=== PATIENT | female | born 1945 | race Caucasian/White ===

== ENCOUNTER 2016-10-15 15:58 | Emergency (ER) | payer OTHER ==
[2016-10-15] MEDS ORDERED: ONDANSETRON 4 MG/2 ML VIAL IVPB ONE (16:22)
[2016-10-15] MEDS ORDERED: SODIUM CHLORIDE 250 ML IV STA (16:22)
--- NOTE | 2016-10-15 16:24 | PDOC ---
History of Present Illness - General History Source: Patient Exam Limitations: No Limitations - History of Present Illness Initial Comments: 10/15/16 16:45 The patient is a 45 year old female, with significant past medical history if vasovagal syncope, osteopenia, who presents today complaining of 3 days of nausea, sweats, shakes, fatigue, and multiple episodes of watery diarrhea. She did not check if she had a fever. She denies abdominal pain. She is able to keep down toast and 6 or 7 mugs of chamomile tea during the day. She went to visit Dr. Linder this afternoon because she was not improving. The nurses could not get a line in for IV fluids and the office was closing, so she was sent down to the ED. Denies chest pain, SOB. Denies lightheadedness, dizziness. Denies urinary changes. Denies abdominal pain. Allergies: Penicillins, tetracyclines, sulfa Medications: Calcium, magnesium, multivitamins Surgical Hx: none Social Hx: No tobacco use. PCP: Dr. Linder <Tash Barrios - Last Filed: 10/15/16 17:33> <Chi Hoffman - Last Filed: 10/15/16 18:24> - General Chief Complaint: Vomiting/Diarrhea Stated Complaint: DEHYDRATION Time Seen by Provider: 10/15/16 16:21 Past History <Tash Barrios - Last Filed: 10/15/16 17:33> - Psycho/Social/Smoking Cessation Hx Anxiety: No Suicidal Ideation: No Smoking History: Never smoked Hx Alcohol Use: No Substance Use Type: None <Chi Hoffman - Last Filed: 10/15/16 18:24> - Past Medical History Allergies/Adverse Reactions: Allergies Allergy/AdvReac Type Severity Reaction Status Date / Time Penicillins Allergy rash Verified 10/15/16 15:59 Sulfa (Sulfonamide Allergy itching Verified 10/15/16 15:59 Antibiotics) Tetracyclines Allergy Verified 10/15/16 15:59 Home Medications: Ambulatory Orders Calcium Carbonate/Vitamin D3 [Caltrate 600 Plus D3 Tablet] 1 each PO DAILY tablet 02/03/13 Magnesium 250 mg PO DAILY 10/15/16 Multivitamins [Multivit ([facility] Formul[facility])] 1 tab PO DAILY 10/15/16 Ondansetron [Zofran Odt -] 4 mg SL TID PRN #12 od.tablet 10/15/16 Review of Systems - Review of Systems Able to Perform ROS?: Yes Comments:: 10/15/16 16:45 CONSTITUTIONAL: Present: fatigue, sweats Absent: fever, no chills EYES: Absent: visual changes ENT: Absent: ear pain, no sore throat CARDIOVASCULAR: Absent: chest pain, no palpitations RESPIRATORY: Absent: cough, no SOB GI: Present: nausea, 1 episode of diarrhea Absent: abdominal pain, no vomiting, no constipation GENITOURINARY: Absent: dysuria, no frequency, no hematuria MUSCULOSKELETAL: Absent: back pain, no arthralgia, no myalgia SKIN: Absent: rash <Tash Barrios - Last Filed: 10/15/16 17:33> *Physical Exam - Physical Exam Comments: 10/15/16 17:33 GENERAL: Well-appearing, well-nourished. No apparent distress. Pale, but always pale according to her . HEENT: Normocephalic, atraumatic. PERRL, EOM intact. CARDIOVASCULAR: Normal S1, S2. Regular rate and rhythm. PULMONARY: Clear to auscultation bilaterally. ABDOMEN: Soft, non-distended, non-tender. Normal bowel sounds. Soft without masses or organomegaly. EXTREMITIES: Normal ROM in all four extremities. No gross deformities. SKIN: Warm, dry. No rash NEUROLOGICAL: No focal neurological deficits. <Tash Barrios - Last Filed: 10/15/16 17:33> ED Treatment Course - LABORATORY CBC & Chemistry Diagram: 10/15/16 16:57 10/15/16 16:57 <Tash Barrios - Last Filed: 10/15/16 17:33> - LABORATORY CBC & Chemistry Diagram: 10/15/16 16:57 10/15/16 16:57 <Chi Hoffman - Last Filed: 10/15/16 18:24> Medical Decision Making - Medical Decision Making 10/15/16 17:59 Patient with primary symptoms of generalized weakness since Friday, but also symptoms of what sounds like a viral gastroenteritis with subjective fever and chills, nausea, and profuse watery diarrhea but on one day only. Sent to the emergency room by her primary physician for presumed dehydration and intravenous rehydration. Physical exam this entirely normal. There is no abdominal tenderness and the nausea seems to have subsided. She has not had any bowel movement for over 24 hours, but is not uncomfortable. With nausea and fatigue, consider occult cardiac disease, although there are no significant risk factors EKG shows normal sinus rhythm and no ST-T wave changes. It appears to be a normal EKG Laboratory evaluation shows no significant abnormalities. The cardiac enzymes are normal The patient feels better after intravenous hydration, although her BUN/ creatinine were not elevated, her hemoglobin and hematocrit were high. 10/15/16 18:21 The patient feels much better. Color is improved. Discharged with her fully ambulatory and in no distress to follow-up as directed <Chi Hoffman - Last Filed: 10/15/16 18:24> *DC/Admit/Observation/Transfer - Attestations Scribe Attestion: 10/15/16 16:47 Documentation prepared by ANDREA Delaney, acting as auditor medical claims for Chi Hoffman MD. <Tahs Barrios - Last Filed: 10/15/16 17:33> - Discharge Dispostion Admit: No <Chi Hoffman - Last Filed: 10/15/16 18:24> Diagnosis at time of Disposition: Viral gastroenteritis - Discharge Dispostion Disposition: HOME Condition at time of disposition: Improved - Prescriptions Prescriptions: Ondansetron [Zofran Odt -] 4 mg SL TID PRN #12 od.tablet PRN Reason: Nausea And/Or Vomiting - Patient Instructions Printed Discharge Instructions: DI for Viral Gastroenteritis -- Adult, DI for Nausea -- Adult
[2016-10-15 17:00] VITALS: BP 140/80; PULSE 83; TEMP 98.3; BMI 20.9
[2016-10-15 17:40] LABS: ALBUMIN 4.6 g/dl (3.5-5.0); ALK PHOS 65 U/L (32-92); ANION GAP 13 (8-16); BILIRUBIN,TOTAL 0.7 mg/dl (0.2-1.0); CALCIUM 9.1 mg/dl (8.4-10.2); CO2 24 mmol/L (22-28); CREATININE 0.6 mg/dl (0.6-1.3); GLUCOSE,RANDOM 90 mg/dl (74-106); SGOT/AST 20 U/L (10-42); SGPT/ALT 16 U/L (10-40); TOT PROT 7.6 g/dl (6.4-8.3)
[2016-10-15 17:48] LABS: BASOPHIL 0.6 % (0-2.0); EOSINOPHIL 0.1 % (0-4.5); MCH 28.3 pg (25.7-33.7); MEAN PLT VOLUME 9.7 fl (7.5-11.1); NEUTROPHILS 62.6 % (42.8-82.8); PLATELET COUNT 317 K/MM3 (134-434); RDW 13.1 % (11.6-15.6); WHITE BLOOD COUNT 8.3 K/mm3 (4.0-10.8)
[2016-10-15] MEDS ORDERED: SODIUM CHLORIDE 500 ML IV STA (17:50)
[2016-10-15 17:53] LABS: CPK(DFH) 73 IU/L (26-140)
[2016-10-15 18:06] LABS: TROPONIN I (DFP) < 0.03 ng/ml (0.03-0.50)
--- NOTE | 2016-10-18 18:29 | EKG ---
Test Reason : Blood Pressure : / mmHG Vent. Rate : 070 BPM Atrial Rate : 070 BPM P-R Int : 124 ms QRS Dur : 076 ms QT Int : 410 ms P-R-T Axes : 048 037 058 degrees QTc Int : 442 ms POOR DATA QUALITY, INTERPRETATION MAY BE ADVERSELY AFFECTED NORMAL SINUS RHYTHM NO PREVIOUS ECGS AVAILABLE Confirmed by MD GONCALVES MARJORY ([id number]) on 10/18/2016 6:28:49 PM Referred By: DR BERNAL Confirmed By:CONNIE GONCALVES MD
== END 2016-10-15 18:37 | disposition home or self-care (01) ==
LOC: FER 15:58
PROC: 3E0337Z Introduction of Electrolytic and Water Balance Substance into Peripheral Vein, Percutaneous Approach (ICD-10-PCS; principal; 2016-10-15)
DX: A08.4 Viral intestinal infection, unspecified (principal); R55 Syncope and collapse; M85.80 Other specified disorders of bone density and structure, unspecified site
CPT/HCPCS: 36415; 80053; 82550; 84484; 85025; 93005; 96360; 96361; 99282-25

== ENCOUNTER 2017-01-15 07:54 | Day surgery (SDC) | payer OTHER ==
[2017-01-10 10:23] VITALS: BMI 20.2
[2017-01-15] MEDS ORDERED: PROPOFOL 20 ML ONE ×2 (07:59)
[2017-01-15 09:51] VITALS: BP 132/66; PULSE 68; TEMP 98
== END 2017-01-15 09:51 | disposition home or self-care (01) ==
LOC: FASU-ENDO 07:54
PROVIDERS: ATTEND Internal Medicine Gastroenterology
PROC: 0DJD8ZZ Inspection of Lower Intestinal Tract, Via Natural or Artificial Opening Endoscopic (ICD-10-PCS; principal; 2017-01-15 08:42)
DX: Z12.11 Encounter for screening for malignant neoplasm of colon (principal)